=== PATIENT | female | born 1955 | race Caucasian/White ===

== ENCOUNTER 2016-08-17 11:58 | Emergency (ER) | payer OTHER ==
[~2016-08-17] VITALS: Wt 89.0 kg
--- NOTE | 2016-08-17 16:30 | ERA ---
ER Documentation Chief Complaint Date/Time DATE: 08/17/16 TIME: 16:29 Chief Complaint LEFT SIDE ABDOMINAL PAIN FOR THE PAST 4 DAYS. NAUSEA NO VOMITING HPI The patient is a 60-year-old female, presenting to the ER because of left-sided abdominal pain intermittently for the last 4 days, associated with nausea, no vomiting, 03/18, denies similar symptoms previously. She complains of constipation. She denies fever, chills, neck pain, chest pain, dyspnea. She does not smoke, drink Past medical history: None Past surgical history: Cholecystectomy, 2 , back surgery ROS All systems reviewed and are negative except as per history of present illness. Medications Home Meds Active Scripts Ibuprofen* (Motrin*) 600 Mg Tab, 600 MG PO Q6H Y for PAIN AND OR ELEVATED TEMP, #30 TAB Prov:MEY RESENDEZ MD 08/17/16 Metronidazole* (Flagyl*) 500 Mg Tablet, 500 MG PO TID for 10 Days, TAB Prov:MEY RESENDEZ MD 08/17/16 Ciprofloxacin Hcl* (Ciprofloxacin Hcl*) 500 Mg Tablet, 500 MG PO BID for 10 Days , TAB Prov:MEY RESENDEZ MD 08/17/16 Allergies Allergies: Coded Allergies: No Known Allergy (Unverified , 08/17/16) Physical Exam Vitals Vital Signs Date Time Temp Pulse Resp B/P Pulse Ox O2 Delivery O2 Flow Rate FiO2 08/17/16 12:20 98.5 85 20 130/81 98 Physical Exam Const: No acute distress. Head: Atraumatic. Eyes: Normal Conjunctiva. ENT: Normal External Ears, Nose and Mouth. Neck: Full range of motion. No meningismus. Resp: Clear to auscultation bilaterally. Cardio: Regular rate and rhythm, no murmurs. Abd: Soft, non distended, normal bowel sounds, vague and diffuse abdominal tenderness, more tender the left lower quadrant of the abdomen, no rigidity, rebound, CVA tenderness Skin: No petechiae or rashes. Back: No midline or flank tenderness. Ext: No cyanosis, or edema. Neur: Awake and alert. No focal deficit Psych: Normal Mood and Affect. Result Diagram: 08/17/16 1640 08/17/16 1640 Results 24 hrs Laboratory Tests Test 08/17/16 16:40 Alanine Aminotransferase (ALT/SGPT) 23IU/L Albumin 4.1g/dl Albumin/Globulin Ratio 1.02 Alkaline Phosphatase 82IU/L Anion Gap 17 Aspartate Amino Transf (AST/SGOT) 23IU/L Basophils # 0.010^3/ul Basophils % 0.3% Blood Urea Nitrogen 18mg/dl Calcium Level 9.4mg/dl Carbon Dioxide Level 27mmol/L Chloride Level 104mmol/L Creatinine 0.91mg/dl Direct Bilirubin 0.00mg/dl Eosinophils # 0.110^3/ul Eosinophils % 1.6% Globulin 4.00g/dl Glucose Level 143mg/dl Hematocrit 39.9% Hemoglobin 13.7g/dl Indirect Bilirubin 0.2mg/dl Lipase 111U/L Lymphocytes # 2.010^3/ul Lymphocytes % 28.3% Mean Corpuscular Hemoglobin 30.8pg Mean Corpuscular Hemoglobin Concent 34.3g/dl Mean Corpuscular Volume 89.6fl Mean Platelet Volume 8.8fl Monocytes # 0.510^3/ul Monocytes % 7.0% Neutrophils # 4.510^3/ul Neutrophils % 62.8% Nucleated Red Blood Cells # 0.010^3/ul Nucleated Red Blood Cells % 0.0/100WBC Platelet Count 84907^3/UL Potassium Level 4.1mmol/L Red Blood Count 4.4510^6/ul Red Cell Distribution Width 13.0% Sodium Level 144mmol/L Total Bilirubin 0.2mg/dl Total Protein 8.1g/dl White Blood Count 7.210^3/ul Current Medications Medications (Trade) Dose Ordered Sig/Husam Route PRN Reason Start Time Stop Time Status Last Admin Dose Admin Morphine Sulfate (morphine) 2 mg ONCE STAT IV 08/17/16 16:34 08/17/16 16:37 DC Ondansetron HCl (Zofran Inj) 4 mg ONCE STAT IV 08/17/16 16:34 08/17/16 16:37 DC Procedures/[place] [id number] Radiology Main Line: [phone] DIAGNOSTIC IMAGING REPORT Patient: WINSTON VALLES : 1955 Age: 60 Sex: F MR #: [id number] DOS: 08/17/16 1634 Ordering MD: MEY RESENDEZ MD Location: E/R Room/Bed: PROCEDURE: CT Abdomen and Pelvis without contrast. CLINICAL INDICATION: Abdominal pelvic pain. Left lower abdominal pain after eating. TECHNIQUE: CT scan of the abdomen and pelvis without contrast was performed on a multidetector high-resolution CT scanner. The patient was scanned without intravenous contrast. Coronal and sagittal reformatted images were obtained from the axial source images. Images were reviewed on a high-resolution PACS workstation. The total exam CTDI equals 18.63 mGy and the total exam DLP equals 1105.23 mGy-cm. One or more of the following dose reduction techniques were used: - Automated exposure control. - Adjustment of the mA and/or kV according to patient size. - Use of iterative reconstruction technique. COMPARISON: None. FINDINGS: CT abdomen: The lung bases are clear. The heart size is normal, without pericardial thickening or effusion. The patient has a small retrocardiac hiatal hernia. The liver is normal in size and fatty infiltrated without focal mass or intrahepatic biliary dilatation. The spleen is normal in size and homogeneous in density. The stomach is partially collapsed, but is grossly unremarkable. The pancreas as visualized is normal. The gallbladder is surgically absent; the biliary tree is unremarkable and there is no evidence for biliary dilatation. The adrenal glands are symmetric and normal. The kidneys are symmetrically unremarkable as well. No renal calculus or obstructive uropathy or mass lesion is seen. There is a 3.0 cm cyst arising from the lateral margin of the midpole cortex of the left kidney, partially exophytic in appearance and presumably benign in nature. This is incompletely evaluated on this noncontrast study. The aorta is of normal caliber. Aortic vascular calcifications are present. There is no retroperitoneal lymphadenopathy. The joanie hepatis region is clear. The bowel and mesentery, as visualized, are equally unremarkable. Small duodenal diverticula are seen adjacent to the head of the pancreas. Scattered colonic diverticulosis is identified, with evidence for mild inflammatory diverticulitis of the lower left descending colon. Mild inflammation and induration and edema of the surrounding mesentery is seen as well. No focal fluid collection or abscess or free air is identified. CT pelvis: The small bowel loops situated within the pelvis are unremarkable. The appendix is visualized and is normal. The pelvic organs are normal. The pelvic sidewalls and inguinal regions are clear. The sigmoid colon and rectum are remarkable for sigmoid diverticulosis. No mass or adenopathy is seen. No free fluid is present. No acute inflammation is identified at this time within the true pelvis region. The surrounding osseous structures are remarkable for degenerative spondylosis of the spine. No osteolytic or osteoblastic lesion is detected. Severe discogenic disease and disk space narrowing at the L4-5 level is identified. IMPRESSION: 1. Positive mild low grade inflammatory diverticulitis of the distal left descending colon. 2. No focal fluid collection or abscess or free air is identified. 3. Benign diverticulosis seen elsewhere throughout the remainder of the colon. 4. Presumed benign partially exophytic left midpole renal cyst. 5. Diffuse fatty infiltration of the liver. Call report was made and findings discussed with Dr. Resendez in the ER at 5:38 p.m. on 08/17/2016. RPTAT: HMJB .Camron Ramírez MD, MD Date Time Electronically viewed and signed by .Camron Ramírez MD, MD on 08/17/2016 17:38 .B/ CC: MEY RESENDEZ MD MEDICAL MAKING DECISION: The patient is a 60-year-old female, presenting with mild acute diverticulitis. He declines any pain medication. She is stable for outpatient follow-up. The differential diagnoses considered include but are not limited to cholelithiasis, cholecystitis, cystitis, pancreatitis, hepatitis , gastritis, peptic ulcer disease, gastric ulcer, appendicitis, diverticulitis, cholangitis, choledocholithiasis, partial small bowel obstruction. Departure Diagnosis: Primary Impression: Diverticulitis Condition: Good Comments She was discharged with Cipro, Flagyl, Motrin I discussed the findings with the patient. I advised the patient to follow-up with the primary physician in about 1-2 days, sooner if needed and return if any concern. The patient's blood pressure was elevated (>120/80) but appears stable without evidence of hypertension emergency or urgency. The patient was counseled about the risks of hypertension and urged to pursue outpatient monitoring and therapy within a week with their primary care physician. MEY RESENDEZ MD Aug 17, 2016 16:30
[2016-08-17] MEDS ORDERED: morphine 2 MG INJ IV STA (16:34)
[2016-08-17] MEDS ORDERED: ONDANSETRON 4 MG INJ IV STA (16:34)
[2016-08-17 17:00] LABS: BASOPHILS % 0.3 % (0.0-2.0); EOSINOPHILS # 0.1 10^3/ul (0.0-0.5); EOSINOPHILS % 1.6 % (0.0-7.0); HEMATOCRIT 39.9 % (37.0-47.0); HEMOGLOBIN 13.7 g/dl (12.0-16.0); LYMPHOCYTES % 28.3 % (15.0-51.0); MEAN CORPUSCULAR HEMOGLOBIN 30.8 pg (29.0-33.0); MEAN CORPUSCULAR HGB CONC 34.3 g/dl (32.0-37.0); MEAN CORPUSCULAR VOLUME 89.6 fl (82.0-101.0); MEAN PLATELET VOLUME 8.8 fl (7.4-10.4); MONOCYTE # 0.5 10^3/ul (0.3-0.9); NEUTROPHIL # 4.5 10^3/ul (1.6-7.5); NEUTROPHILS % 62.8 % (39.0-77.0); PLATELET COUNT 252 10^3/UL (140-440); RED BLOOD COUNT 4.45 10^6/ul (4.20-5.40); UNCORRECTED WBC 7.2 10^3/ul (4.8-10.8); WHITE BLOOD COUNT 7.2 10^3/ul (4.8-10.8)
[2016-08-17 17:04] LABS: CONDITION 1
[2016-08-17 17:12] LABS: ALBUMIN 4.1 g/dl (3.3-4.9); POTASSIUM 4.1 mmol/L (3.5-5.1)
[2016-08-17 17:14] LABS: CREATININE 0.91 mg/dl (0.44-1.00)
[2016-08-17 17:15] LABS: ALBUMIN/GLOBULIN RATIO 1.02; BILIRUBIN,INDIRECT 0.2 mg/dl (0-1.1); BILIRUBIN,TOTAL 0.2 mg/dl (0.2-1.3); CALCIUM 9.4 mg/dl (8.4-10.2); TOTAL PROTEIN 8.1 g/dl (6.1-8.1)
--- NOTE | 2016-08-17 17:39 | RADRPT ---
PROCEDURE: CT Abdomen and Pelvis without contrast. CLINICAL INDICATION: Abdominal pelvic pain. Left lower abdominal pain after eating. TECHNIQUE: CT scan of the abdomen and pelvis without contrast was performed on a multidetector hig h-resolution CT scanner. The patient was scanned without intravenous contrast. Coronal and sagittal reformatted images were obtained from the axial source images. Images were reviewed on a high-resol [employer] PACS workstation. The total exam CTDI equals 18.63 mGy and the total exam DLP equals 1105.23 m Gy-cm. One or more of the following dose reduction techniques were used: - Automated exposure control. - Adjustment of the mA and/or kV according to patient size. - Use of iterative reconstruction technique. COMPARISON: None. FINDINGS: CT abdomen: The lung bases are clear. The heart size is normal, without pericardial thickening or effusion. Th e patient has a small retrocardiac hiatal hernia. The liver is normal in size and fatty infiltrated without focal mass or intrahepatic biliary dilatation. The spleen is normal in size and homogeneou s in density. The stomach is partially collapsed, but is grossly unremarkable. The pancreas as vis ualized is normal. The gallbladder is surgically absent; the biliary tree is unremarkable and there is no evidence for biliary dilatation. The adrenal glands are symmetric and normal. The kidneys a re symmetrically unremarkable as well. No renal calculus or obstructive uropathy or mass lesion is seen. There is a 3.0 cm cyst arising from the lateral margin of the midpole cortex of the left kidne y, partially exophytic in appearance and presumably benign in nature. This is incompletely evaluate d on this noncontrast study. The aorta is of normal caliber. Aortic vascular calcifications are present. There is no retroperit hathaway lymphadenopathy. The joanie hepatis region is clear. The bowel and mesentery, as visualized, are equally unremarkable. Small duodenal diverticula are seen adjacent to the head of the pancreas. Scattered colonic diverticulosis is identified, with evidence for mild inflammatory diverticulitis o f the lower left descending colon. Mild inflammation and induration and edema of the surrounding me sentery is seen as well. No focal fluid collection or abscess or free air is identified. CT pelvis: The small bowel loops situated within the pelvis are unremarkable. The appendix is visualized and i s normal. The pelvic organs are normal. The pelvic sidewalls and inguinal regions are clear. The sigmoid colon and rectum are remarkable for sigmoid diverticulosis. No mass or adenopathy is seen. No free fluid is present. No acute inflammation is identified at this time within the true pelvis re gion. The surrounding osseous structures are remarkable for degenerative spondylosis of the spine. No ost eolytic or osteoblastic lesion is detected. Severe discogenic disease and disk space narrowing at th e L4-5 level is identified. IMPRESSION: 1. Positive mild low grade inflammatory diverticulitis of the distal left descending colon. 2. No focal fluid collection or abscess or free air is identified. 3. Benign diverticulosis seen elsewhere throughout the remainder of the colon. 4. Presumed benign partially exophytic left midpole renal cyst. 5. Diffuse fatty infiltration of the liver. Call report was made and findings discussed with Dr. Gay in the ER at 5:38 p.m. on 08/17/2016. RPTAT: [id number] .Camron Ramírez MD, MD Date Time Electronically viewed and signed by .Camron Ramírez MD, on 08/17/2016 17:38 .B/
[2016-08-17] MEDS ORDERED: CIPR500T4 PO (17:53)
[2016-08-17] MEDS ORDERED: IBUP-1542 PO (17:54)
[2016-08-17] MEDS ORDERED: METR500T PO (17:54)
[2016-08-17 18:37] VITALS: BP 122/78; PULSE 66; RESP 18; TEMP 98.5
== END 2016-08-17 18:35 | disposition home or self-care (01) ==
LOC: E/R 11:58
DX: K57.92 Diverticulitis of intestine, part unspecified, without perforation or abscess without bleeding (principal); R40.2142 Coma scale, eyes open, spontaneous, at arrival to emergency department; R40.2252 Coma scale, best verbal response, oriented, at arrival to emergency department; R40.2362 Coma scale, best motor response, obeys commands, at arrival to emergency department
CPT/HCPCS: 36415; 74176; 80053; 83690; 85025; J2270; J2405